=== PATIENT | male | born 1945 | race Caucasian/White ===

== ENCOUNTER 2017-10-02 11:13 | Outpatient (CLI) | payer MEDICARE ==
[~2017-10-02] VITALS: Ht 182.9 cm; Wt 100.0 kg
--- NOTE | ~2017-10-02 | HEMODYNAMI ---
PATIENT:JOSÉ MIGUEL IRIZARRY MEDICAL RECORD: [id number] : 49 LOCATION:[facility] ADMISSION DATE: 10/02/17 Generatedon:10/02/201713:45 Patient name: JOSÉ MIGUEL IRIZARRY Patient #: [id number] SSN: DO B: 1945 Date of study: 10/02/2017 Page: Of Hemodynamic Procedure Report Patient Data Patient Demographics Procedure consent was obtained First Name: JOSÉ MIGUEL Gender: Male Last Name: EDIE : 1945 Patient #: [id number] Age: 72 year(s) Race: Unknown Additional ID: [id number] Contact details [address]: [address] [place] [address] [place] State: [place] City: [facility] [place] Zip code: [address] Past Medical History Allergies Allergen Reaction Date Comments Reported Aspirin 10/02/2017 Admission Admission Data Admission Date: 10/02/2017 Admission Time: 11:13 Procedure Procedure Types Cath Procedure Diagnostic Procedure LHC LHC w/Coronaries Procedure Description Procedure Date Procedure Date: 10/02/2017 Procedure Start Time: 13:32 Procedure End Time: 13:45 Procedure Staff Name Function Armando Riley MD Performing Physician Deyanira Gonzales RT Monitor Zahra Norton RT Scrub Hank Cason RN Nurse Procedure Data Cath Procedure Fluoroscopy Diagnostic fluoroscopy Total fluoroscopy Time: 2.1 time: 2.1 min min Diagnostic fluoroscopy Total fluoroscopy dose: 863 dose: 863 mGy mGy Contrast Material Contrast Material Type Amount (ml) Isovue 300 77 Entry Location Entry Primary Successful Side Size Upsize Upsize Entry Closure Succes sful Closure Location (Fr) 1 (Fr) 2 (Fr) Remarks Device Remarks Femoral Right 5 Fr Exoseal artery Estimated blood loss: 5 ml Diagnostic catheters Device Type Used For End Catheter Placement MULTIPACK JL 4.0 5Fr Left Coronary catheter Angiography MULTIPACK 3DRC 5Fr Right Coronary catheter Angiography MULTIPACK Pigtail 5 Fr LV Angiography catheter Procedure Complications No complications Procedure Medications Medication Administration Route Dosage 0.9% NaCl I.V. 100 ml/hr Oxygen NC 2 l/min Heparin Flush Bag added to field 2 bags (1000units/500ml NS) Lidocaine 2% added to field 20 Versed I.V. 1 mg Fentanyl I.V. 50 mcg Hemodynamics Rest Heart Rate: 76 (bpm) Pressure Samples Time Site Value (mmHg) Purpose Heart Use Rate(bpm) 13:38 LV 126/10,13 EDP 62 13:39 AO 139/66(95) Pullback 72 13:39 LV 129/13,17 Pullback 72 Gradients Valve Time Site 1 Site 2 Mean SEP/DFP Peak To Heart Use (mmHg) (sec/min) Peak Rate (mmHg) (bpm) Aortic 13:39 LV AO 0 11 0 72 129/13,17 139/66(95) Calculations Valve P-P Mean Valve Index Valve Source Name Gradient Area Flow (cm2) Aortic 0 0 0 0 Snapshots Pre Cath Intra NCS Post Cath Vital Signs Time Heart Resp SPO2 etCO2 NIBP (mmHg) Rhythm Pain Sedation Rate (ipm) (%) (mmHg) Status Level (bpm) 13:22:02 74 19 95 0 137/97(120) NSR 0 (11) 10(A) , No pain 13:26:12 77 15 93 0 153/98(122) NSR 0 (11) 10(A) , No pain 13:30:28 77 12 92 0 115/86(99) NSR 0 (11) 10(A) , No pain 13:35:31 73 9 93 0 111/75(103) NSR 0 (11) 9(A) , No pain 13:39:33 73 10 91 0 114/77(93) NSR 0 (11) 9(A) , No pain 13:43:41 70 10 93 0 110/73(96) NSR 0 (11) 9(A) , No pain Medications Time Medication Route Dose Verified Delivered Reason Notes Effe ctiveness by by 13:20:22 0.9% NaCl I.V. 100 Hank Hank Per ml/hr Kamla Cason physician RN RN 13:20:33 Oxygen NC 2 Hank Hank Per l/min Kamla Cason physician RN RN 13:20:57 Heparin Flush added 2 Hank Hank used for Bag to bags Kamla Cason procedure (1000units/500ml field RN RN NS) 13:21:12 Lidocaine 2% added 20ml Hank Hank for local to vial Kamla Cason anesthetic field RN RN 13:25:00 Fentanyl I.V. 50 Hank Hank for mcg Lorigan Lorpaula sedation RN RN 13:25:48 Versed I.V. 1 mg Hank Hank for Lorigan Kamla sedation RN sales enablement lead Log Time Note 13:06:06 Zahra Norton RT(R) sent for patient. Start room use. 13:06:07 Time tracking: Regular hours 13:06:10 Plan of Care:Hemodynamics will remain stable., Cardiac rhythm will remain stable., Comfort level will be maintained., Respiratory function will remain adequate., Patient/ family verbilizes understanding of procedure., Procedure tolerated without complication., Recovers from procedure without complications.. 13:09:13 Patient received from Pre/Post Procedure Room to [facility] 2 Alert and oriented. Tansferred to table in Supine position. 13:09:14 Warm blankets applied, and vladislav hugger turned on for patient comfort. 13:09:14 Correct patient and procedure confirmed by team. 13:09:16 Signed procedure consent form obtained from patient. 13:09:17 ECG and BP/O2 sat monitors applied to patient. 13:09:18 Full Disclosure recording started 13:20:22 0.9% NaCl 100 ml/hr I.V. was administered by Hank Cason RN; Per physician; 13:20:33 Oxygen 2 l/min NC was administered by Hank Cason RN; Per physician; 13:20:51 Vital chart was started 13:20:54 Rhythm: sinus rhythm 13:20:57 Heparin Flush Bag (1000units/500ml NS) 2 bags added to field was administered by Hank Cason RN; used for procedure; 13:21:12 Lidocaine 2% 20ml vial added to field was administered by Hank Cason RN; for local anesthetic; 13:21:13 H&P Date Dictated: 09/12/2017 Within 30 days and on chart., H&P Addendum completed by physician on day of procedure. (MUST COMPLETE FOR ALL OUTPATIENTS). 13:21:14 Pre-procedure instructions explained to patient. 13:21:15 Pre-op teaching completed and patient verbalized understanding. 13:21:16 Family in waiting room. 13:21:17 Patient NPO since Midnight. 13:21:24 13:21:26 Is the patient allergic to Iodine/contrast media? No. 13:22:00 Patient allergic to Aspirin 13:23:10 Is patient on blood thinner?Yes 13:23:13 ACC The patient was administered the following blood thiners within the last 24 hours: ACCPlavix 13:23:15 Patient diabetic? No. 13:23:18 Previous problem with sedation/anesthesia? No ? 13:23:19 Snore? Yes 13:23:20 Sleep apnea? No 13:23:21 Deviated septum? No 13:23:22 Opens mouth fully? Yes 13:23:22 Sticks out tongue? Yes 13:23:24 Airway obstruction? No ? 13:23:26 Dentures? No ? 13:23:28 Pre procedure: right dorsailis pedis pulse 2+ Normal; easily identifiable; not easily obliterated 13:23:32 Patient pain scale 0/10 ?. 13:23:36 IV patent on arrival in left hand with 0.9% NaCl at O. 13:23:38 Lab results completed and on chart. 13:23:45 Right groin area was prepped with chlora-prep and draped in sterile fashion 13:23:46 Alarms reviewed by R. N. 13:23:47 Sharps counted by scrub and verified by R.N. 13:23:49 Use device set Femoral Dx 13:23:50 ACIST Syringe (49204) opened to sterile field. 13:23:50 Bag Decanter (2002S) opened to sterile field. 13:23:50 Medline Cath Pack ([id number]) opened to sterile field. 13:23:51 SHEATH 5FR [place] (WDV043) opened to sterile field. 13:23:51 DIAGNOSTIC WIRE .035 260cm J wire (834473) opened to sterile field. 13:23:52 ACIST Hand Control (13842) opened to sterile field. 13:23:52 ACIST Manifold (79424) opened to sterile field. 13:23:53 DIAGNOSTIC Multipack 5Fr catheter set (UG2404) opened to sterile field. 13:23:53 Tegaderm 4 x 4 (1626W) opened to sterile field. 13:23:54 PERCUTANEOUS ENTRY 19GA needle opened to sterile field. 13:24:00 Final Timeout: patient, procedure, and site verified with staff and physician. All members of the team are in agreement. 13:24:02 Right groin site verified by team. 13:24:04 Physical assessment completed. ASA score P 2 - A patient with mild systemic disease as per Armando Riley MD. 13:24:07 Sedation plan: IV Moderate Sedation Medication:Versed, Fentanyl 13:25:00 Fentanyl 50 mcg I.V. was administered by Hank Cason RN; for sedation; 13:25:48 Versed 1 mg I.V. was administered by Hank Cason RN; for sedation; 13:27:11 Baseline sample Acquired. 13:27:13 Zero performed for pressure channel P1 13:27:17 Zero performed for pressure channel P1 13:32:00 Procedure started. 13:32:06 Local anesthetic to right femoral artery with Lidocaine 2% by Armando Riley MD.INITIAL ACCESS ONLY 13:32:56 A 5 Fr sheath was inserted into the Right Femoral artery 13:33:22 A MULTIPACK JL 4.0 5Fr catheter was advanced over the wire and used for Left Coronary Angiography. 13:35:02 Catheter removed. 13:35:46 A MULTIPACK 3DRC 5Fr catheter was advanced over the wire and used for Right Coronary Angiography. 13:37:21 Catheter removed. 13:37:28 A MULTIPACK Pigtail 5 Fr catheter was advanced over the wire and used for LV Angiography. 13:39:03 LV gram done using BHATTI 13:39:06 Injector settings: Ml/sec: 10, Volume: 20, 13:39:13 LV hemodynamics recorded. 13:39:14 Catheter removed. 13:39:21 Sheath removed intact; hemostasis achieved with Exoseal to the Right Femoral artery. 13:39:28 EXOSEAL 5Fr (EX500) opened to sterile field. 13:39:31 Procedure ended.(Physican Out) :39:41 Fluoroscopy time 02.10 minutes. ::44 Fluoroscopy dose: 863 mGy 13:39:44 Flurop Dose total: 863 13:41:04 Contrast amount:Isovue 300 77ml. 13:41:05 Sharps counted by scrub and verified by R.N. 13:41:08 Insertion/operative site no bleeding no hematoma. 13:41:12 Post-op/insertion site Right Femoral artery dressed using a 4 x 4 and Tegaderm. 13:41:15 Post right femoral artery:stable, clean and dry 13:41:16 Post Procedure Pulses reassessed and unchanged 13:41:29 Post-procedure physical assessment completed. ASA score P 2 - A patient with mild systemic disease as per Armando Riley MD. 13:41:32 Post procedure rhythm: unchanged. 13:41:42 Estimated blood loss: 5 ml 13:41:43 Post procedure instruction explained to patient.Patient verbalizes understanding. 13:41:44 Patient needs reinforcement of post procedure teaching. 13:42:20 Procedure and supply charges have been captured, reviewed, submitted and are correct. 13:42:24 Procedure Complication : No complications 13:42:25 See physician's report for complete and final results. 13:45:13 Vital chart was stopped 13:45:15 Report given to Pre/Post Procedure Room. 13:45:17 Patient transfered to Pre/Post Procedure Room with Bed. 13:45:21 Procedure ended. 13:45:21 Full Disclosure recording stopped 13:45:24 End room use (Document Last) 13:45:24 End room use (Document Last) Device Usage Item Name Manufacture Quantity Catalog Hospital Part Current Minimal Lot# / Number Charge Number Stock Stock Serial# Code ACIST Acist 1 90114 341461 278340 469358 20 Syringe Medical (54100) Systems Inc Bag Decanter Microtek 1 2001S 056018 83469 534372 5 (2001S) Medical Inc. Medline Cath Cardinal 1 [id number] 127938 72207 070075 5 Pack Health ([id number]) SHEATH 5FR Terumo 1 FMS166 157475 262873 713325 40 [place] (LUV375) DIAGNOSTIC St Rohit 1 814283 675506 814908 120400 30 WIRE .035 260cm J wire (757932) ACIST Hand Acist 1 35786 144186 240888 913413 5 Control Medical (73396) Systems Inc ACIST Acist 1 28549 409990 221378 706150 5 Manifold Medical (78267) Systems Inc DIAGNOSTIC Cardinal 1 CX3985 729342 30495 156691 30 Multipack Health 5Fr catheter set (BH4598) Tegaderm 4 x 3M 1 1626W 836893 966958 156685 5 4 (1626W) PERCUTANEOUS [facility] 1 X68802 773916 787176 5 ENTRY 19GA needle MULTIPACK JL Cardinal 1 865890 5 4.0 5Fr Health catheter MULTIPACK Cardinal 1 939464 5 3DRC 5Fr Health catheter MULTIPACK Cardinal 1 379565 5 Pigtail 5 Fr Health catheter EXOSEAL 5Fr Cardinal 1 EX500 596045 327299 245505 10 (EX500) Health Signature Audit [place] Stage Time Signature Unsigned Intra-Procedure 10/02/2017 Deyanira 1:45:46 PM Counts RT(R) Signatures Monitor : Deyanira Signature : Counts RT Date : Time : [address] [address]
--- NOTE | ~2017-10-02 | OP ---
PATIENT NAME: JOSÉ MIGUEL IRIZARRY MEDICAL RECORD: [id number] :49 LOCATION:[facility] ADMISSION DATE: SURGEON: CONSTANTINO RODRIGUEZ MD DATE OF OPERATION: 10/02/2017 PROCEDURES: Left heart catheterization, selective coronary angiography, right femoral artery approach. CATHETERS: A 5-Turkmen sheath, 5/4 left and right Anel, 5/4 pig. The procedure was well tolerated and the patient returned to the [facility]ris. Sheath removed. ExoSeal device placed. FINDINGS: Left ventriculography in the 30-degree BHATTI view; normal wall motion. Normal systolic function. CORONARY ANATOMY. LEFT MAIN: Left main tapers to about 70% to 80% stenosis. LAD: LAD has a proximal stenosis of 80%, on distal maybe 50% to 60% stenosis, fair target. CIRCUMFLEX: Free of disease. There appears to be good target distally. RIGHT CORONARY: Right coronary has proximal disease by 80% with good target distally. IMPRESSION: Multivessel coronary disease including left main disease. I would have Dr. Guevara evaluate possibly for coronary artery bypass grafting. TRANSINT:[id number] Voice Confirmation ID: [id number] DOCUMENT ID: [id number] CONSTANTINO RODRIGUEZ MD CC: [id number] DICTATION DATE: 10/02/17 1435 TWX OPERATOR: 10/02/17 1606 REG [facility] [address] [place] [id number]
[2017-10-02 11:33] VITALS: BP 168/81; Ht 182.9 cm; Wt 100.0 kg
[2017-10-02 11:38] LABS: BASOPHILS 0.3 % (0-2); HEMATOCRIT 40.7 % (42.0-54.0); HEMOGLOBIN 13.2 g/dL (13.5-17.5); IMMATURE GRANULOCYTES 0.5 % (0-5); LYMPHOCYTES 16.5 % (15-50); MCH 28.3 pg (26.0-34.0); MCHC 32.4 g/dL (31.0-37.0); MCV 87.2 fL (80.0-100.0); MEAN PLATELET VOLUME 9.6 fL (7.4-10.4); MONOCYTES 8.6 % (2-11); NEUTROPHILS 73.1 % (40-80); PLATELET COUNT 235 10x3/uL (130-400); RBC 4.67 10x6/uL (4.20-6.10); RDW 14.7 % (11.5-14.5); WBC 5.8 10x3/uL (4.8-10.8)
[2017-10-02] MEDS ORDERED: PLAVIX75 MG PO (11:39)
[2017-10-02] MEDS ORDERED: ZYLOPRIM300 MG PO (11:39)
[2017-10-02] MEDS ORDERED: CELEXA40 MG PO (11:40)
[2017-10-02] MEDS ORDERED: GEMFIBROZIL600 MG PO (11:40)
[2017-10-02] MEDS ORDERED: LIPITOR80 MG PO (11:41)
[2017-10-02] MEDS ORDERED: SEROQUEL50 MG PO (11:41)
[2017-10-02] MEDS ORDERED: CORDARONE200 MG PO (11:41)
[2017-10-02] MEDS ORDERED: FLOMAX0.4 MG PO (11:41)
[2017-10-02 12:01] LABS: CALC OSMOLALITY 271 mosm/kg (275-300); CALCIUM 9.2 mg/dL (8.5-10.1); CARBON DIOXIDE 24.7 mmol/L (21.0-32.0); CHLORIDE - SERUM 103 mmol/L (98-107); CREATININE - SERUM 0.8 mg/dL (0.6-1.3); GLUCOSE 102 mg/dL (74-106); POTASSIUM - SERUM 4.1 mmol/L (3.5-5.1); SODIUM 135 mmol/L (136-145); UREA NITROGEN 19 mg/dL (7-18); eGFR NON AFRICAN AMERICAN > 90 mL/min (90-120)
== END 2017-10-02 16:20 | disposition home or self-care (01) ==
LOC: D.CATH 11:13
PROVIDERS: Internal Medicine Interventional Cardiology
DX: I25.119 Atherosclerotic heart disease of native coronary artery with unspecified angina pectoris (principal); Z01.812 Encounter for preprocedural laboratory examination